=== PATIENT | male | born 2000 | race African-American/Black ===

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

== ENCOUNTER → 2021-04-23 | Outpatient (CLI) | payer MEDICAID, SELFPAY | END | disposition home or self-care (01) | LOC: LABSPEC 13:29 | PROVIDERS: Referring Provider Physician Assistant; Visit Provider Physician Assistant | DX: Z11.52 Encounter for screening for COVID-19 (principal) | CPT/HCPCS: 87635; U0005; U0003 ==

== ENCOUNTER 2021-07-30 18:30 | Outpatient (RCR) | payer MEDICAID, SELFPAY ==
--- NOTE | 2021-03-05 18:44 | HP.PTEVAL ---
Patient's Visit Information LYNDA RAMEY is a 20 year old M referred to Physical Therapy by Dr. Pastor Joe MD with a diagnosis of S/P Arthoscopic labral repair with capsular closure on 02-17-21. Date of Evaluation: 03/05/21 Physical Therapist: RENE Henning - Visit Plan Frequency: 2-3x /Week Duration: 3 Months Plan: 2-3X/ week for 12 weeks too follow protocol (in folder) for manual circumduction, AAROM, strengthening, gait training, functional strengthening with HEP - Subjective Pt injured his L hip in 2017 playing football and he decided to to surgery on Feb 17, 2021. He had a L hip arthroscopic repair with capsular closure. He is 50% WB with crutches. When he walks fast he does NWB but tries to put 50% down throughout the day. He returns to the Dr Apr 01. yesterday was his post op appointment and said he was doing well. He is not driving. said to wait to drive until off crutches. He has stairs at home but they are avoidable. - Pain L hip pain Pain Intensity (Out of 10): 0 - Objective Gait: Walks with B crutches with PWB on the L. AAROm L Hip AROM 83 degrees. AAROM L hip abd 20 degrees. Pt is able to do painfree glute sets, PT with ab brace with and without hip march,. Pt has increase pain with active movement of hip abd and end range hip flexion - Balance/Special Test Scores Lower Extremity Functional Score: 13 - Goals Goal 1:: I HEP Goal Time Frame: 4-6 Weeks Goal 2:: Be able to walk with no antalgic gait by DC Goal Time Frame: 4-6 Weeks Goal 3:: Up and down steps recip with no railing by DC Goal Time Frame: 4-6 Weeks Goal 4:: Increase L hip strength to 4/5 hip flex, hip abd, hip ext Goal Time Frame: 4-6 Weeks - Rehabilitation Potential Rehabilitation Potential: Good - Anticipated Interventions Patient/Client Instruction: Educate patient on: Condition, Plan of Care For the Purpose of:: To decrease pain, To increase ROM, To improve nutrient delivery to tissue, To improve muscle performance and motor function, To improve ability to perform ADL's, To increase tolerance to activity/condition/position, To improve performance and independence with ADL's, To improve ability of physical actions for home/community/work/leisure, To improve gait and locomotor functions, To improve health of tissue, To decrease soft tissue restriction, To increase flexibility/ROM, To improve safety with gait Therapeutic Exercise to Include: Strength training, Postural training, Flexibilty training, Gait and locomotor training, Neuromotor development, Passive ROM, Active ROM, Dynamic Lumbar Stabilization For the Purpose of:: To decrease pain, To decrease swelling/inflammation, To increase ROM, To improve nutrient delivery to tissue, To improve muscle performance and motor function, To improve ability to perform ADL's, To increase tolerance to activity/condition/position, To improve performance and independence with ADL's, To decrease level of supervision to perform tasks, To improve ability of physical actions for home/community/work/leisure, To improve gait and locomotor functions, To improve health of tissue, To decrease soft tissue restriction, To increase flexibility/ROM, To improve endurance, To improve balance, To improve safety with gait Functional Training to Include: Gait training For the Purpose of:: To improve gait and locomotor functions, To improve safety with gait Manual Therapy Techniques to Include: Passive ROM For the Purpose of:: To increase ROM, To improve nutrient delivery to tissue Thank you for the opportunity to evaluate your patient. For Medicare and Medicare HMO plans, please review the plan of care and approve it. It will need to be FAXED BACK to us at [phone] for Medicare purposes. For Medicare only, by signing this I certify the plan of care. Please let me know if there are questions or concerns regarding this plan of care. Physician Signature: Date:
--- NOTE | 2021-04-30 18:02 | HP.PTREVAL_ITS ---
Dr. Pastor Joe MD, It has been my pleasure to treat LYNDA RAMEY over the last 10 visits for S/P Left Hip Arthoscopic labral repair with capsular closure on 02-17-21. Please see the progress note below for an update on the physical therapy plan of care! Subjective: Pt saw the Dr on the and told him he could go back to work and everything looked good. He has a follow up on May 13. He is walking without a crutch and all feet all day and no pain. Deep squatting or if piviots too hard on that leg he will have pain. He is doing his HEP. Pt feel great. There are somethings he can not do. His body is still healing Objective/Function: Pt has full AROM with self overpressure into B hip flexion. Hip MMT: hip flex R 4+/5 and L 4/5, R hip abd 4+/5 and L 4+/5, L hip ext 4-/5. Pt is able to walk with high knees with no pain. 30 seconds L SLB with knee straight and knee bent. Able to squat with slight pain with form needing correction with toe out Plan Plan: resume strength activities from 04/15/21 next session. 2-3X/ week for 12 weeks - follow protocol (in folder) for manual circumduction, AAROM, strengthening, gait training, functional strengthening with HEP Balance/Gait/Functional tests - Balance/Special Test Scores Lower Extremity Functional Score: 58 Goals Goal 1:: I HEP Goal Time Frame: 4-6 Weeks Goal Progress: Goal Met Goal 2:: Be able to walk with no antalgic gait by DC Goal Time Frame: 4-6 Weeks Goal Progress: Goal Met Goal 3:: Up and down steps recip with no railing by DC Goal Time Frame: 4-6 Weeks Goal Progress: Goal Met Goal 4:: Increase L hip strength to 4/5 hip flex, hip abd, hip ext Goal Time Frame: 4-6 Weeks Goal Progress: Goal Met Goal 5:: Be able to squat with good form without pain Goal Time Frame: 4-6 Weeks Goal 6:: Complete jogging progression program once advised by Goal Time Frame: 4-6 Weeks Anticipated Interventions Patient/Client Instruction: Educate patient on: Condition, Plan of Care For the Purpose of:: To decrease pain, To increase ROM, To improve nutrient delivery to tissue, To improve muscle performance and motor function, To improve ability to perform ADL's, To increase tolerance to activity/condition/position, To improve performance and independence with ADL's, To improve ability of physical actions for home/community/work/leisure, To improve gait and locomotor functions, To improve health of tissue, To decrease soft tissue restriction, To increase flexibility/ROM, To improve safety with gait Therapeutic Exercise to Include: Strength training, Postural training, Flexibilty training, Gait and locomotor training, Neuromotor development, Passive ROM, Active ROM, Dynamic Lumbar Stabilization For the Purpose of:: To decrease pain, To decrease swelling/inflammation, To increase ROM, To improve nutrient delivery to tissue, To improve muscle performance and motor function, To improve ability to perform ADL's, To increase tolerance to activity/condition/position, To improve performance and independence with ADL's, To decrease level of supervision to perform tasks, To improve ability of physical actions for home/community/work/leisure, To improve gait and locomotor functions, To improve health of tissue, To decrease soft tissue restriction, To increase flexibility/ROM, To improve endurance, To im prove balance, To improve safety with gait Functional Training to Include: Gait training For the Purpose of:: To improve gait and locomotor functions, To improve safety with gait Manual Therapy Techniques to Include: Passive ROM For the Purpose of:: To increase ROM, To improve nutrient delivery to tissue Please do not hesitate to contact me at [phone] by phone or if you have questions or concerns regarding this new plan of care! Sincerely, RENE Henning
--- NOTE | 2021-07-30 18:56 | HP.PTDCSUM ---
It has been my pleasure to treat LYNDA RAMEY referred by Dr. Pastor Joe MD, with the diagnosis of S/P Left Hip Arthoscopic labral repair with capsular closure on 02-17-21 for a total of 25 visit(s). Discharge Date: 07/30/21 Please see the following information for a summary of their discharge status. Subjective: Pt can't remember the last time he had hip pain. No pain with running and jumping. He went on a 2 mile hike the other day and he had no pain. He goes back to the Dr on the . He is ready to be released. L hip pain Pain Intensity (Out of 10): 0 % Improvement: 100 Objective/Function: 10 min run today 1 min on and 1 min off with good form and equal stance time on the each leg. stairs; no signs of weakness going 2 steps at a time. Pt is able to 2 feet hop fw/bw and SW with no issue and with equal weight on each leg. Pt was able to single leg hop on each leg with no pain and no signs of weakness Goal 1:: I HEP Goal Progress: Goal Met Goal 2:: Be able to walk with no antalgic gait by DC Goal Progress: Goal Met Goal 3:: Up and down steps recip with no railing by DC Goal Progress: Goal Met Goal 4:: Increase L hip strength to 4/5 hip flex, hip abd, hip ext Goal Progress: Goal Met Goal 5:: Be able to squat with good form without pain Goal Progress: Goal Met Goal 6:: Complete jogging progression program once advised by Goal Progress: Goal Met Plan: DC PT to HEP. Discharge Comments: DC PT (pt sees on the and hoping to be fully cleared) If there are questions or concerns regarding this patient's physical therapy, please feel free to call me at [phone]. Thank you for the referral of this patient. Sincerely, Stephanie Cruz, MPT Balance/Gait/Functional tests - Balance/Special Test Scores Lower Extremity Functional Score: 80
== END 2021-07-30 19:00 | disposition home or self-care (01) ==
LOC: PT 18:30
PROVIDERS: Referring Provider Orthopaedic Surgery Sports Medicine; Visit Provider Orthopaedic Surgery Sports Medicine
DX: M24.152 Other articular cartilage disorders, left hip (principal); M25.852 Other specified joint disorders, left hip; Z98.890 Other specified postprocedural states
CPT/HCPCS: 97110; 97161; 97530